=== PATIENT | female | born 1965 | race African-American/Black ===

== ENCOUNTER 2018-06-28 14:35 | Emergency (ER) | payer MEDICARE ==
[~2018-06-28] VITALS: Ht 180.3 cm; Wt 63.0 kg
[2018-06-28 15:15] VITALS: BP 142/85
[2018-06-28 16:00] LABS: APPEARANCE,URINE CLEAR; BILIRUBIN, URINE NEGATIVE (NEGATIVE); GLUCOSE, URINE (UA) NEGATIVE (NEGATIVE); KETONES,URINE NEGATIVE (NEGATIVE); LEUKOCYTE ESTERASE ,URINE NEGATIVE (NEGATIVE); NITRITE,URINE NEGATIVE (NEGATIVE); PH,URINE 6 (4.5-8.0); PROTEIN,URINE NEGATIVE (NEGATIVE); UROBILINOGEN,URINE 1 MG/DL (0.0-1.0)
[2018-06-28 16:01] LABS: BASOPHILS % (AUTO) 2.1 % (0.0-2.0); EOSINOPHILS % (AUTO) 7.9 % (0.0-3.0); HEMOGLOBIN 13.3 G/DL (12.0-16.0); LYMPHOCYTES % (AUTO) 38.4 % (20.0-45.0); MEAN CORPUSCULAR VOLUME 100 FL (80-99); MONOCYTES % (AUTO) 7.6 % (1.0-10.0); PLATELET COUNT 219 K/UL (150-450); RED CELL DISTRIBUTION WIDTH 10.1 % (11.6-14.8); WHITE BLOOD COUNT 4.1 K/UL (4.8-10.8)
[2018-06-28 16:03] LABS: COLOR,URINE YELLOW
[2018-06-28 16:11] LABS: ANION GAP 8 mmol/L (5-15); BLOOD UREA NITROGEN 15 mg/dL (7-18); CARBON DIOXIDE 29 MMOL/L (21-32); CHLORIDE 105 MMOL/L (98-107); CREATININE 0.8 MG/DL (0.55-1.30); POTASSIUM 3.8 MMOL/L (3.5-5.1); SODIUM 142 MMOL/L (136-145)
--- NOTE | 2018-06-28 16:13 | Diagnostic Imaging Report ---
Indication: Headache Technique: Contiguous 5 mm thick transaxial imaging of the head obtained in a Siemens Sensation [address] scanner. Soft tissue and bone windows generated. Automatic Exposure Control was utilized. Total Dose length Product (DLP): [address] Dose Index Volume (CTDIvol): 0.15, 70.38, 28.19 mGy Comparison: none Findings: There is mild prominence of the ventricles, basal cisterns, and cerebral sulci consistent with atrophy. Mild, nonspecific, white matter hypoattenuation is noted throughout the brain consistent with chronic small vessel disease. There is no midline shift, edema, acute hemorrhage, mass effect, or abnormal extra-axial fluid collections. Bones and extra osseous soft tissues are unremarkable. Impression: No acute intracranial bleed, mass effect or edema. Mild atrophy of the brain. Nonspecific white matter hypoattenuation probably due to chronic small vessel disease. The CT scanner at [facility] is accredited by the [employer] and the scans are performed using dose optimization techniques as appropriate to a performed exam including Automatic Exposure control.
[2018-06-28 16:15] LABS: ALANINE AMINOTRANSFERASE 23 U/L (12-78); ALBUMIN 3.4 G/DL (3.4-5.0); ALBUMIN/GLOBULIN RATIO 0.9 (1.0-2.7); ALKALINE PHOSPHATASE 96 U/L (46-116); ASPARTATE AMINO TRANSFERASE 17 U/L (15-37); BILIRUBIN,TOTAL 0.4 MG/DL (0.2-1.0)
--- NOTE | 2018-06-28 16:27 | Diagnostic Imaging Report ---
Indication: Facial trauma and pain Technique: Continuous helical transaxial imaging of the maxillofacial structures obtained without intravenous contrast administration. Coronal 2-D reformats were also obtained. Study obtained in a Siemens sensation [address] Automatic Exposure Control was utilized. Total Dose length Product (DLP): Refer to CT head mGycm CT Dose Index Volume (CTDIvol): Refer to CT head mGy Comparison: None Findings: There is an acute fracture involving the floor of the right orbit extending into the anterior wall of the right maxillary sinus. There is also a nondisplaced fracture of the posterior wall of the right maxillary sinus. No evidence of herniation of the orbital fat or obvious imaging evidence for entrapment of the inferior rectus muscle. Bones are osteopenic. The orbits appear symmetric. There is slight deviation of nasal septum. No other fractures are identified. TMJs appear unremarkable. Mastoids are clear. There is mucosal thickening present within the paranasal sinuses consistent with the mild sinusitis. IMPRESSION: Acute fracture of the right orbital floor contiguous with the anterior maxillary wall. Acute fracture of the posterior right maxillary wall. The CT scanner at [facility] is accredited by the [employer] and the scans are performed using dose optimization techniques as appropriate to a performed exam including Automatic Exposure control.
--- NOTE | 2018-06-28 16:29 | Emergency Room Report ---
History of Present Illness General Chief Complaint: General Complaint Source: Patient Present Illness HPI 53-year-old female patient presents to ER fall onto the right side of her face 8 days ago. reports that she was walking very quickly when she began to feel dizzy when she tripped and fell. Reports history of similar symptoms in the past. Denies syncope, vertigo, dizziness currently. Denies photophobia or phonophobia. Denies vision loss or changes. Denies dizziness with positional change. Patient reports history of seizures, states that she takes carbamazepine , states that she "does not believe she had a seizure ", but she does not know if she lost consciousness. Denies vomiting or vision changes. Reports numbness and pain over the right side of her face. Reports bruising on right side reports her right eye. Denies fever, chest pain, shortness of breath. Denies history of syncope. Reports last seizure was 6 years ago. Denies other acute symptoms at this time. Reports took Advil for pain previously but has not taking anything for pain since that time. Allergies: Coded Allergies: No Known Allergies (Unverified , 06/28/18) Patient History Past Medical History: see triage record Reviewed Nursing Documentation: PMH: Agreed; PSxH: Agreed Nursing Documentation-PMH Past Medical History: No History, Except For Hx Hypertension: Yes Hx Seizures: Yes Review of Systems All Other Systems: negative except mentioned in HPI Physical Exam Vital Signs Date Time Temp Pulse Resp B/P (MAP) Pulse Ox O2 Delivery O2 Flow Rate FiO2 06/28/18 14:46 98.6 83 16 142/85 97 Room Air 98.6 Sp02 EP Interpretation: reviewed, normal General Appearance: well appearing, no apparent distress, alert, GCS 15, non- toxic Head: normocephalic, atraumatic, other - ecchymosis noted near right eye over maxillary bone, no swelling, no erythema, TTP, no depression; no jaw clicking, no crepitus Eyes: bilateral eye normal inspection, bilateral eye PERRL, bilateral eye EOMI ENT: hearing grossly normal, normal pharynx, no angioedema, normal voice, uvula midline, moist mucus membranes Neck: full range of motion, no bony tend Respiratory: lungs clear, normal breath sounds, no rhonchi, no respiratory distress, no accessory muscle use, no wheezing, speaking full sentences Cardiovascular #1: regular rate, rhythm, no edema Cardiovascular #2: 2+ radial (R), 2+ radial (L) Gastrointestinal: non tender, soft, no mass, non-distended, no guarding, no rebound Musculoskeletal: back normal, digits/nails normal, gait/station normal, normal range of motion, non-tender Neurologic: alert, oriented x3, responsive, 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 Brown is my supervising Physician whom patient management has been discussed with. Diagnostic Impression: Primary Impression: Fracture of orbital floor Additional Impressions: Maxillary fracture Dizziness Hx of seizure disorder ER Course Pt presents to ED c/o facial pain and dizziness. DDX considered but are not limited to laceration, abrasion, contusion, cellulitis, ICH, skull fracture, CVA, seizure, vertigo, anemia, drug use, orthostatic hypotension, vertigo, BPPV, Menieres, age Cranial nerves intact as tested, no focal neuro deficits, hx of similar symptoms in the past, denies symptoms of dizziness currently, low suspicion for CVA. Ordered CT of head to rule out acute pathology. VITAL SIGNS are WNL, patient is afebrile Ordered CT head and facial bones, labs, meds. ED INTERVENTIONS: Denies dizziness with change in position, low suspicion for orthostatic dizziness. Low suspicion for central vertigo. CBC and CMP unremarkable, H&H normal, no electrolyte abnormality. Urine drug screen negative UA negative for infection CT head negative for acute disease or mass. CT facial bones acute fracture of the orbital floor and anterior and posterior maxillary wall. Likely causing pain symptoms. Followup with ENT specialist, provided with contact information, request referral from PCP, will provide with abx to prevent infection. Advised to avoid head or face trauma, do not blow nose. Provided with pain medication in ER, patient reports pain symptoms improved while in ER. Followup with PCP to discuss evaluation for dizziness symptoms. Advised patient on close outpatient followup and referral to neurology. ER precautions given. Patient able to ambulate independently without difficulty. I discussed patient care with Dr. Brown, agrees with assessment and treatment plan. DISCHARGE: Rx provided for Augmentin Rx provided for Sarepta #10 At this time pt is stable for d/c to home. Patient resting comfortably, in no acute distress, nontoxic appearing, talking without difficulty. Will provide with patient care instructions and any necessary prescriptions. Patient to take medication as instructed. Care plan and follow-up instructions provided. Patient questions asked and answered. Patient reports understanding and agreement to treatment plan. Patient instructed to followup with PCP to discuss further treatment plan and ability to go to work, ER precautions given. Patient instructed to return to ER immediately for any new or worsening of symptoms. - Please note that this Emergency Department Report was dictated using [employer] tool filer technology software, occasionally this can lead to erroneous entry secondary to interpretation by the dictation equipment. Labs Test 06/28/18 15:25 White Blood Count 4.1 K/UL (4.8-10.8) Red Blood Count 3.70 M/UL (4.20-5.40) Hemoglobin 13.3 G/DL (12.0-16.0) Hematocrit 37.0 % (37.0-47.0) Mean Corpuscular Volume 100 FL (80-99) Mean Corpuscular Hemoglobin 35.9 PG (27.0-31.0) Mean Corpuscular Hemoglobin Concent 35.9 G/DL (32.0-36.0) Red Cell Distribution Width 10.1 % (11.6-14.8) Platelet Count 219 K/UL (150-450) Mean Platelet Volume 6.6 FL (6.5-10.1) Neutrophils (%) (Auto) 44.0 % (45.0-75.0) Lymphocytes (%) (Auto) 38.4 % (20.0-45.0) Monocytes (%) (Auto) 7.6 % (1.0-10.0) Eosinophils (%) (Auto) 7.9 % (0.0-3.0) Basophils (%) (Auto) 2.1 % (0.0-2.0) Urine Color Yellow Urine Appearance Clear Urine pH 6 (4.5-8.0) Urine Specific [place] 1.020 (1.005-1.035) Urine Protein Negative (NEGATIVE) Urine Glucose (UA) Negative (NEGATIVE) Urine Ketones Negative (NEGATIVE) Urine Blood Negative (NEGATIVE) Urine Nitrite Negative (NEGATIVE) Urine Bilirubin Negative (NEGATIVE) Urine Urobilinogen 1 MG/DL (0.0-1.0) Urine Leukocyte Esterase Negative (NEGATIVE) Sodium Level 142 MMOL/L (136-145) Potassium Level 3.8 MMOL/L (3.5-5.1) Chloride Level 105 MMOL/L (98-107) Carbon Dioxide Level 29 MMOL/L (21-32) Anion Gap 8 mmol/L (5-15) Blood Urea Nitrogen 15 mg/dL (7-18) Creatinine 0.8 MG/DL (0.55-1.30) Estimat Glomerular Filtration Rate > 60 mL/min (>60) Glucose Level 106 MG/DL (74-106) Calcium Level 9.0 MG/DL (8.5-10.1) Total Bilirubin 0.4 MG/DL (0.2-1.0) Aspartate Amino Transf (AST/SGOT) 17 U/L (15-37) Alanine Aminotransferase (ALT/SGPT) 23 U/L (12-78) Alkaline Phosphatase 96 U/L (46-116) Total Protein 7.1 G/DL (6.4-8.2) Albumin 3.4 G/DL (3.4-5.0) Globulin 3.7 g/dL Albumin/Globulin Ratio 0.9 (1.0-2.7) Salicylates Level 0.7 ug/mL (2.8-20) Urine Opiates Screen Negative (NEGATIVE) Acetaminophen Level < 2 MCG/ML (10-30) Urine Barbiturates Screen Negative (NEGATIVE) Carbamazepine (Tegretol) Level 10.6 ug/mL (4.0-12.0) Phencyclidine (PCP) Screen Negative (NEGATIVE) Urine Amphetamines Screen Negative (NEGATIVE) Urine Benzodiazepines Screen Negative (NEGATIVE) Urine Cocaine Screen Negative (NEGATIVE) Urine Marijuana (THC) Screen Negative (NEGATIVE) Serum Alcohol < 3 mg/dL EKG Diagnostic Results Rate: normal Rhythm: NSR ST Segments: other ASA given to the pt in ED: No PA Scribe Text Brown Chacon PA-C Rhythm Strip Diag. Results EP Interpretation: yes Rate: 63 Rhythm: NSR, no PVC's, no ectopy PA Scribe Text Brown Chacon PA-C CT/MRI/US Diagnostic Results CT/MRI/US Diagnostic Results #1: Imaging Test Ordered: CT facial bones Impression Acute fracture of the right orbital floor contiguous with the anterior maxillary wall. Acute fracture of the posterior right maxillary wall. CT/MRI/US Diagnostic Results #2: Imaging Test Ordered: CT head Impression Impression: No acute intracranial bleed, mass effect or edema. Mild atrophy of the brain. Nonspecific white matter hypoattenuation probably due to chronic small vessel disease. Last Vital Signs Date Time Temp Pulse Resp B/P (MAP) Pulse Ox O2 Delivery O2 Flow Rate FiO2 06/28/18 14:46 98.6 83 16 142/85 97 Room Air 98.6 Status: improved Disposition: HOME, SELF-CARE Condition: Stable Scripts Amoxicillin/Potassium Clav 875-125* (AUGMENTIN 875-125 TABLET*) 1 Each Tablet 1 TAB ORAL TWICE A DAY, #14 TAB Prov: Constantino Chaocn 06/28/18 Hydrocodone Bit/Acetaminophen 5-325* (NORCO 5-325*) 1 Each Tablet 1 TAB ORAL Q6H PRN for For Pain, #10 TAB 0 Refills Prov: Constantino Chacon 06/28/18 Referrals: NON PHYSICIAN (PCP) Patient Instructions: Dizziness, [id number], Orbital Floor Fracture, Non- Blowout, Zygoma Fracture Additional Instructions: Followup with primary care provider in 3 -5 days. Followup with ENT specialist. Take medications as directed. Patient questions asked and answered. ER precautions given, patient instructed to return to ER immediately for any new or worsening of symptoms. Constantino Chacon Jun 28, 2018 16:29
[2018-06-28] MEDS ORDERED: Acetaminophen 500mg (ES) tab ORAL ONE (16:30)
[2018-06-28] MEDS ORDERED: Norco 5mg/325mg tab ORAL ONE (18:30)
[2018-06-28] MEDS ORDERED: NORCO 5-325 TA1 EACH ORAL (19:05)
[2018-06-28] MEDS ORDERED: AUGMENTIN 875-1 EAC1 ORAL (19:05)
[2018-06-28 19:08] VITALS: BP 140/82
[2018-06-28 19:39] VITALS: BP 143/86
--- NOTE | 2018-06-29 18:30 | Cardiology Report ---
APPROVED REPORT EKG Measurement Heart [id number] Normal sinus rhythm Nonspecific T wave abnormality Abnormal ECG
== END 2018-06-28 19:39 | disposition home or self-care (01) ==
LOC: EMR 15:41
DX: S02.31XA Fracture of orbital floor, right side, initial encounter for closed fracture (principal); S02.40CA Maxillary fracture, right side, initial encounter for closed fracture; W01.0XXA Fall on same level from slipping, tripping and stumbling without subsequent striking against object, initial encounter; Y92.9 Unspecified place or not applicable; R42 Dizziness and giddiness; G40.909 Epilepsy, unspecified, not intractable, without status epilepticus; I10 Essential (primary) hypertension
CPT/HCPCS: 36415; 70450; 70486; 80053; 80156; 80307; 81003; 85025; 93005; 99284; G0480; 80329